=== PATIENT | male | born 1960 | race Caucasian/White ===

== ENCOUNTER 2022-07-28 12:40 | Inpatient (IN) | payer MEDICAID, SELFPAY ==
[2022-07-28] VITALS (66 sets, daily range): BP systolic 102–172; BP diastolic 70–123; PULSE 76–103; RESP 12–35; TEMP 35.9–36.7; O2SAT 95–100; BMI 29.4; BMI 29.7
--- NOTE | 2022-07-28 13:02 | XR_ITS ---
WS: [id number] EXAMINATION: XR chest 1V portable [id number] REASON FOR EXAM: palpitations COMPARISON: 09/02/2016 ORDER DATE: 07/28/2022 1:09 PM TECHNIQUE: A single, portable frontal chest x-ray was obtained. X-RAY FINDINGS: The lungs are clear. Pleural spaces are clear. No pleural effusions or pneumothorax. Cardiomediastinal silhouette demonstrates previous sternotomy and stent graft repair of thoracic aort ic arch to the upper sternal wires are fractured and minimally .. No evidence for pulmonary edema. Soft tissue and osseous structures are unremarkable. No tubes or lines are present. XR/XR chest 1V portable [id number] IMPRESSION: Unremarkable frontal portable chest x-ray except for postsurgical changes as n oted.
--- NOTE | 2022-07-28 13:02 | ECG_ITS ---
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 Measurements Intervals Wheeler Rate: 88 P: 147 CA: 139 QRS: 134 QRSD: 126 T: 241 QT: 373 QTc: 453 Interpretive Statements ECTOPIC ATRIAL RHYTHM POSSIBLE LEFT ATRIAL ENLARGEMENT [-0.1mV P-WAVE IN V1/V2] POSSIBLE RIGHT VENTRICULAR HYPERTROPHY [SOME/ALL OF: PROMINENT R IN V1, LATE TRANSITION, RAD, EBENEZER, SSS] PROBABLE INFERIOR MYOCARDIAL INFARCTION , OF INDETERMINATE AGE [35 ms Q WAVE IN II/aVF] MODERATE T-WAVE ABNORMALITY, CONSIDER LATERAL ISCHEMIA [-0.1+ mV T-WAVE IN I/aVL/V5/V6] Compared to ECG 09/04/2016 06:12:47 Ectopic atrial rhythm now present T-wave abnormality still present Possible ischemia still present Electronically Signed On 07-28-2022 16:20:44 CDT by Kelton Rinaldi M.D. [id number]
--- NOTE | 2022-07-28 13:04 | ED_ITS ---
HPI - Arrhythmia/Palpitations General: Chief Complaint: Arrhythmia/Palpitations Stated Complaint: SVT - CONVERTED NOW Time Seen by Provider: 07/28/22 12:48 Source: patient Mode of arrival: EMS Limitations: no limitations History of Present Illness: This patient was transported to our emergency department by EMS. Patient has a known history of coronary artery disease as well as having had a aortic valve replaced both these procedures done in 2017 at this facility. States he has been doing fairly well with decreased work capacity since these procedures but today he had not an episode which persisted most of the morning that he is never had before. He states that any kind of physical activity left him short of breath and feeling like his heart was racing. He states he had 1 episode of sweatiness that lasted approximately 5 minutes. He states that his symptoms seem to be controlled when he was inactive such as sitting but if he got up and walked around on level ground or other activities of daily living his symptoms would return. He eventually made his way to the clinic who notified EMS. EMS apparently found him to be in a wide-complex tachycardia and gave him both 6 followed by 12 mg of Adenocard with resolution of his rhythm and symptoms. Patient states he has been faithful to his medications as prescribed. He does not regularly see cardiology since his procedure approximately 6 years ago. He does still smoke tobacco. He denies any other associated symptoms today. MD complaint: heart racing Duration: intermittent Arrhythmia history: on anti-coagulants Associated symptoms: Deny anxiety, nausea or vomiting Treatments prior to arrival: adenosine Review of Systems Const: Denies: fever(s) or chills Eyes: Denies: change in vision ENMT: Denies: throat pain or odynophagia Card: Reports: palpitations, lightheadedness and dyspnea on exertion; Denies: chest pain Resp: Denies: productive cough or non-productive cough GI: Denies: abdominal pain, nausea or vomiting : Denies: flank pain, difficulty urinating or dysuria Musc: Denies: neck pain, back pain, extremity pain or extremity swelling Skin/Breast: Denies: rash Neuro: Denies: headache(s), numbness in extremities or weakness in extremities Psych: Denies: anxiety or depression PFS ED PFSH: Social History Smoking and tobacco status: current every day smoker Alcohol intake: current Alcohol intake frequency: holidays/special occasions only Physical Exam Narrative: EXAM NARRATIVE: The patient is alert appears to be in no acute distress answers questions in a goal-directed fashion. Const: COMMON NORMALS: no acute distress, average body habitus, patient oriented x3, healthy appearing and alert GENERAL APPEARANCE: cooperative and comfortable HENMT: COMMON NORMALS: Normal nasal mucous membranes and turbinates present, moist oral mucous membranes and oropharynx normal NOSE: Normal nasal mucous membranes and turbinates present Eye: COMMON NORMALS: Equal, round and reactive pupils present, EOMs intact bilaterally and conjunctivae normal CONJUNCTIVA: Yes conjunctivae normal P UPIL: Yes Equal, round and reactive pupils present Neck/C-Spine: COMMON NORMALS: full ROM, no lymphadenopathy, no JVD, Thyroid normal and No carotid bruits THYROID: Thyroid normal Chest: COMMONS NORMALS: normal inspection of the chest and normal palpation of entire chest wall Resp: COMMON NORMALS: normal respiratory effort, No retractions, No use of accessory muscles and clear to auscultation bilaterally EFFORT & INSPECTION: Yes able to speak in complete sentences AUSCULTATION: clear to auscultation bilaterally Cardio: COMMON NORMALS: no JVD, regular rate, regular rhythm, No murmurs p resent (Cardio) and Peripheral pulses 2+ throughout RATE: regular rate RHYTHM: regular rhythm PERIPHERAL PULSES: Peripheral pulses 2+ throughout GI: COMMON NORMALS: Normal to inspection, nondistended, normoactive bowel sounds present, Soft to palpation and non-tender PALPATION: Yes Soft to palpation : COMMON NORMALS: Yes no CVA tenderness BLADDER/KIDNEY EXAM: Yes no CVA tenderness Back/Pelvis: COMMON NORMALS: no CVA tenderness, thoracic and lumbar spine normal to inspection, no thoracic nor lumbar tenderness and straight leg raise negative bilaterally Extremity: COMMON NORMALS: normal to inspection, full ROM, capillary refill normal, no clubbing, cyanosis or edema, no calf tenderness and no pedal edema Neuro: COMMON NORMALS: patient oriented x3, moves all extremities, no focal motor deficits and no sensory deficits noted SENSORIUM/ORIENTATION: Yes alert Psych: COMMON NORMALS: mental status grossly normal Skin: COMMON NORMALS: no rashes or lesions noted and no jaundice GENERAL SKIN EXAM: no rashes or lesions noted Course Reevaluation(s): Reevaluation #1: Has remained stable in normal sinus rhythm since arrival. His initial troponin was noted to be elevated in the 163 level with an associated NT proBNP elevation. I discussed these findings briefly and also related that I was can be consulting cardiology. Patient did express some lack of enthusiasm for being admitted. Time: 16:00 Consultations: Consultation #1: Discussed with Dr. Gatica consulting director hedis. Time: 16:25 Consultation #2: Discussed with Dr. Shetty who agrees to admission. Time: 16:38 Vital Signs: Vital signs: Vital Signs Temperature 98.1 F 07/28/22 12:45 Pulse Rate 84 07/28/22 15:40 Respiratory Rate 20 H 07/28/22 15:40 Blood Pressure 139/101 07/28/22 15:40 Pulse Oximetry 97 07/28/22 15:40 Oxygen Delivery Me thod Room Air 07/28/22 14:40 MDM - Arrhythmia/Palpitations Medical Decision Making This patient was transported via EMS because of what sounds like rapid heart rate. Evaluation by EMS and review of tracings provided by EMS appears to be a wide-complex tachycardia. He did receive Identicard prior to arrival which converted him back to sinus rhythm. Patient did not have chest pain throughout his symptoms that lasted intermittently throughout the morning and does not have chest pain now. His resting EKG initially showed nonspecific changes but no clear evidence of J-point elevation and ischemia. We will continue to monitor, work-up for any evidence of ongoing ischemia and consult cardiology. His initial troponin was elevated and subsequent troponin doubled.Continue your to be pain-free however because of his presenting rhythm in the field as well as his ongoing troponin elevations it is in the patient's best interest to be placed in the hospital for continued monitoring and determination whether angiogram is indicated. This was reviewed with the patient who was somewhat reluctant but agreed to the process. Medical Records I reviewed the patient's medical records. No past medical records available within this system since the patient's procedures done at this facility in 2017. Lab Data I reviewed the patient's lab results. 07/28/22 12:49 07/28/22 12:49 Radiology Impressions Chest X-Ray 07/28/22 13:02 IMPRESSION: Unremarkable frontal portable chest x-ray except for postsurgical changes as noted. Laboratory Results WBC 11.6 10^3/uL (4.0-10.0) H 07/28/22 12:49 RBC 4.29 10^6/uL (4.1-5.3) 07/28/22 12:49 Hgb 14.1 g/dL (11.7-16.6) 07/28/22 12:49 Hct 40.9 % (42.0-52.0) L 07/28/22 12:49 MCV 95.3 fl (80-94) H 07/28/22 12:49 MCH 32.9 pg (28.0-34.0) 07/28/22 12:49 MCHC 34.5 g/dL (30.0-36.0) 07/28/22 12:49 RDW 13.2 % (12.1-15.1) 07/28/22 12:49 Plt Count 186 10^3/cmm (130-400) 07/28/22 12:49 MPV 10.7 fL (7.4-10.4) H 07/28/22 12:49 Neut % (Auto) 80.9 % 07/28/22 12:49 Lymph % (Auto) 9.2 % 07/28/22 12:49 [place] % (Auto) 8.1 % 07/28/22 12:49 Eos % (Auto) 0.6 % 07/28/22 12:49 Baso % (Auto) 0.6 % 07/28/22 12:49 Neut # (Auto) 9.35 10^3/uL (1.8-7.7) H 07/28/22 12:49 Lymph # (Auto) 1.1 10^3/uL (0.8-4.8) 07/28/22 12:49 [place] # (Auto) 0.9 10^3/uL (0.2-0.9) 07/28/22 12:49 Eos # (Auto) 0.1 10^3/uL (0.0-0.8) 07/28/22 12:49 Baso # (Auto) 0.1 10^3/uL (0.0-0.1) 07/28/22 12:49 Nucleated RBC % (auto) 0 % 07/28/22 12:49 Nucleated RBCs # 0.0 /100WBC 07/28/22 12:49 Sodium 141 mmol/L (136-145) 07/28/22 12:49 Potassium 4.2 mmol/L (3.5-5.1) 07/28/22 12:49 Chloride 110 mmol/L (98-107) H 07/28/22 12:49 Carbon Dioxide 21 mmol/L (22-29) L 07/28/22 12:49 Anion Gap 14.2 (5-19) 07/28/22 12:49 BUN 15 mg/dL (8-23) 07/28/22 12:49 Creatinine 1.2 mg/dL (0.7-1.2) 07/28/22 12:49 GFR Calculation 61.8 mL/min (90-130) L 07/28/22 12:49 Glucose 91 mg/dL (65-115) 07/28/22 12:49 Calculated Osmolality 292 mOsm/kg (285-295) 07/28/22 12:49 Calcium 9.0 mg/dL (8.5-10.5) 07/28/22 12:49 Total Bilirubin 0.4 mg/dL (0.15-1.2) 07/28/22 12:49 AST 37 U/L (0-40) 07/28/22 12:49 ALT 28 U/L (0-41) 07/28/22 12:49 Alkaline Phosphatase 76 U/L (40-130) 07/28/22 12:49 Troponin T Baseline 163 ng/L (0-15) H* 07/28/22 12:49 Troponin T 120 Minute 312.6 ng/L (0-15) H 07/28/22 14:55 Delta Troponin T 149.6 ABS# (0-10) H* 07/28/22 14:55 NT-Pro-B Natriuret Pep 2425 pg/mL (0-125) H 07/28/22 12:49 Total Protein 6.4 g/dL (6.6-8.7) L 07/28/22 12:49 Albumin 4.0 g/dL (3.5-5.2) 07/28/22 12:49 Globulin 2.4 g/dL (1.3-4.6) 07/28/22 12:49 TSH 3.05 uIU/mL (0.27-4.20) 07/28/22 12:49 EKG Data EKG 1: I personally reviewed and interpreted this EKG as follows: Interpretation: Contemporaneous review of resting EKG reveals ventricular rate of 88 bpm. Appears to be in sinus rhythm. TN interval QRS duration corrected QT interval are all normal. Somewhat rightward axis. Nonspecific ST-T wave changes noted across the precordium. He does have ST wave changes with T wave inversion 3 and aVF. Other EKG comments: Chest X-Ray 07/28/22 13:02 IMPRESSION: Unremarkable frontal portable chest x-ray except for postsurgical changes as noted. Discharge Plan Discharge Patient Disposition: Placed in Observation Clinical Impression: Wide-complex tachycardia, Non-ST elevation NC (NSTEMI) Condition: Stable Prescriptions: No Action clopidogrel 75 mg tablet 75 mg PO DAILY lisinopril 5 mg tablet 5 mg PO DAILY rosuvastatin 40 mg tablet 40 mg PO DAILY Referrals: Seth Gatica MD [Primary Care Provider] - Coding Level of Care Code ED Epic Radiant Analyst for Chg James
[2022-07-28 13:14] LABS: Basophils # 0.1 10^3/uL (0.0-0.1); Basophils % 0.6 %; Eosinophils # 0.1 10^3/uL (0.0-0.8); Eosinophils % 0.6 %; Hematocrit 40.9 % (42.0-52.0); Hemoglobin 14.1 g/dL (11.7-16.6); Lymphocytes # 1.1 10^3/uL (0.8-4.8); Lymphocytes % 9.2 %; Mean Corpuscular HGB Conc 34.5 g/dL (30.0-36.0); Mean Corpuscular Hemoglobin 32.9 pg (28.0-34.0); Mean Corpuscular Volume 95.3 fl (80-94); Mean Platelet Volume 10.7 fL (7.4-10.4); Monocytes # 0.9 10^3/uL (0.2-0.9); Monocytes % 8.1 %; Neutrophils # 9.35 10^3/uL (1.8-7.7); Neutrophils % 80.9 %; Nucleated Red Blood Cells % 0 %; Platelet Count 186 10^3/cmm (130-400); Red Blood Count 4.29 10^6/uL (4.1-5.3); Red Cell Distribution Width 13.2 % (12.1-15.1); White Blood Count 11.6 10^3/uL (4.0-10.0)
[2022-07-28 14:06] LABS: Alanine Aminotransferase 28 U/L (0-41); Alkaline Phosphatase 76 U/L (40-130); Anion Gap 14.2 (5-19); Aspartate Amino Transferase 37 U/L (0-40); Blood Urea Nitrogen 15 mg/dL (8-23); Carbon Dioxide 21 mmol/L (22-29); Chloride 110 mmol/L (98-107); Globulin 2.4 g/dL (1.3-4.6); Glomerular Filtration Rate 61.8 mL/min (90-130); Glucose 91 mg/dL (65-115); NT Pro B Type Natriuretic Pept 2425 pg/mL (0-125); Osmolality Calculated 292 mOsm/kg (285-295); Potassium 4.2 mmol/L (3.5-5.1); Sodium 141 mmol/L (136-145); Thyroid Stimulating Hormone 3.05 uIU/mL (0.27-4.20); Total Bilirubin 0.4 mg/dL (0.15-1.2); Total Protein 6.4 g/dL (6.6-8.7)
[2022-07-28 14:17] LABS: Troponin(5th) Baseline 163 ng/L (0-15)
--- NOTE | 2022-07-28 16:09 | ECG_ITS ---
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 Measurements Intervals [place] Rate: 78 P: 69 SD: 143 QRS: 57 QRSD: 122 T: 38 QT: 399 QTc: 456 Interpretive Statements SINUS RHYTHM PROBABLE INFERIOR MYOCARDIAL INFARCTION , OF INDETERMINATE AGE [35 ms Q WAVE IN II/aVF] Compared to ECG 07/28/2022 12:45:04 Ectopic atrial rhythm no longer present Atrial abnormality no longer present T-wave abnormality no longer present Possible ischemia no longer present Myocardial infarct finding still present Electronically Signed On 07-28-2022 16:22:34 CDT by Kelton Rinaldi M.D. [id number]
[2022-07-28 16:21] LABS: Troponin 5 2HR 312.6 ng/L (0-15); Troponin 5 2HR Delta 149.6 ABS# (0-10)
--- NOTE | 2022-07-28 17:05 | ED_ITS ---
HPI - Arrhythmia/Palpitations General: Chief Complaint: Arrhythmia/Palpitations Stated Complaint: SVT - CONVERTED NOW Time Seen by Provider: 07/28/22 12:48 Source: patient Mode of arrival: EMS Limitations: no limitations History of Present Illness: MD complaint: heart racing Treatments prior to arrival: adenosine [facility] ED PFSH: Medical History Arteriosclerotic heart disease (ASHD) Essential hypertension Surgical History History of artificial heart valve Social History Smoking and tobacco status: current every day smoker Alcohol intake: current Alcohol intake frequency: holidays/special occasions only Course Vital Signs: Vital signs: Vital Signs Temperature 98.6 F 07/29/22 20:00 Pulse Rate 67 07/29/22 20:00 Respiratory Rate 22 H 07/29/22 20:00 Blood Pressure 137/76 07/29/22 20:00 Pulse Oximetry 95 07/29/22 20:00 Oxygen Delivery Me thod Room Air 07/29/22 20:00 MDM - Arrhythmia/Palpitations Lab Data 07/29/22 05:03 07/29/22 05:03 Radiology Impressions Chest X-Ray 07/28/22 13:02 IMPRESSION: Unremarkable frontal portable chest x-ray except for postsurgical changes as noted. Laboratory Results WBC 11.6 10^3/uL (4.0-10.0) H 07/28/22 12:49 RBC 4.29 10^6/uL (4.1-5.3) 07/28/22 12:49 Hgb 14.1 g/dL (11.7-16.6) 07/28/22 12:49 Hct 40.9 % (42.0-52.0) L 07/28/22 12:49 MCV 95.3 fl (80-94) H 07/28/22 12:49 MCH 32.9 pg (28.0-34.0) 07/28/22 12:49 MCHC 34.5 g/dL (30.0-36.0) 07/28/22 12:49 RDW 13.2 % (12.1-15.1) 07/28/22 12:49 Plt Count 186 10^3/cmm (130-400) 07/28/22 12:49 MPV 10.7 fL (7.4-10.4) H 07/28/22 12:49 Neut % (Auto) 80.9 % 07/28/22 12:49 Lymph % (Auto) 9.2 % 07/28/22 12:49 [place] % (Auto) 8.1 % 07/28/22 12:49 Eos % (Auto) 0.6 % 07/28/22 12:49 Baso % (Auto) 0.6 % 07/28/22 12:49 Neut # (Auto) 9.35 10^3/uL (1.8-7.7) H 07/28/22 12:49 Lymph # (Auto) 1.1 10^3/uL (0.8-4.8) 07/28/22 12:49 [place] # (Auto) 0.9 10^3/uL (0.2-0.9) 07/28/22 12:49 Eos # (Auto) 0.1 10^3/uL (0.0-0.8) 07/28/22 12:49 Baso # (Auto) 0.1 10^3/uL (0.0-0.1) 07/28/22 12:49 Nucleated RBC % (auto) 0 % 07/28/22 12:49 Nucleated RBCs # 0.0 /100WBC 07/28/22 12:49 Sodium 141 mmol/L (136-145) 07/28/22 12:49 Potassium 4.2 mmol/L (3.5-5.1) 07/28/22 12:49 Chloride 110 mmol/L (98-107) H 07/28/22 12:49 Carbon Dioxide 21 mmol/L (22-29) L 07/28/22 12:49 Anion Gap 14.2 (5-19) 07/28/22 12:49 BUN 15 mg/dL (8-23) 07/28/22 12:49 Creatinine 1.2 mg/dL (0.7-1.2) 07/28/22 12:49 GFR Calculation 61.8 mL/min (90-130) L 07/28/22 12:49 Glucose 91 mg/dL (65-115) 07/28/22 12:49 Calculated Osmolality 292 mOsm/kg (285-295) 07/28/22 12:49 Calcium 9.0 mg/dL (8.5-10.5) 07/28/22 12:49 Total Bilirubin 0.4 mg/dL (0.15-1.2) 07/28/22 12:49 AST 37 U/L (0-40) 07/28/22 12:49 ALT 28 U/L (0-41) 07/28/22 12:49 Alkaline Phosphatase 76 U/L (40-130) 07/28/22 12:49 Troponin T Baseline 163 ng/L (0-15) H* 07/28/22 12:49 Troponin T 120 Minute 312.6 ng/L (0-15) H 07/28/22 14:55 Delta Troponin T 149.6 ABS# (0-10) H* 07/28/22 14:55 NT-Pro-B Natriuret Pep 2425 pg/mL (0-125) H 07/28/22 12:49 Total Protein 6.4 g/dL (6.6-8.7) L 07/28/22 12:49 Albumin 4.0 g/dL (3.5-5.2) 07/28/22 12:49 Globulin 2.4 g/dL (1.3-4.6) 07/28/22 12:49 TSH 3.05 uIU/mL (0.27-4.20) 07/28/22 12:49 Discharge Plan Discharge Patient Disposition: Admitted As Inpatient Admit Provider: Maxx Shetty Clinical Impression: Wide-complex tachycardia, Non-ST elevation MD (NSTEMI) Condition: Stable Coding Level of Care Code ED Laboratory Development Technician for Josey Ramirez
[2022-07-28] MEDS: enoxaparin 100 mg/mL Syringe 90 MG SUBCUT (17:18)
--- NOTE | 2022-07-28 17:35 | P.HP_ITS ---
Providers/Chief Complaint Admitting Physician: Maxx Shetty MD Primary Care Provider: Seth Gatica MD Chief Complaint: SVT - CONVERTED NOW History of Present Illness Antony Juares is a 62 year old male with past medical history of hypertension , coronary artery disease s/p CABG, longtime active heavy chronic smoker, came in today with chief complaint of acute onset of shortness of breath dizziness palpitation, burning chest sensation, he does not himself to the local clinic, EMT found him wide-complex tachycardia, received 2 doses of adenosine 6 and 12, converted to sinus rhythm, was brought to the ER.EKG : Sinus rhythm,X-ray chest: No acute findings. Pertinent labs: WBC 11.6, H&H 14/40 PLT : 186 , serum sodium 141 serum potassium 4.2, BUN 15, serum creatinine 1.2,TSH: 3.05 Troponin trend: 163-312 , 6-hour troponin pending, proBNP 2425 Patient received 1 dose of therapeutic Lovenox in the ER, cardiology was consulted. Review of Systems General: Reports: 10 or more systems reviewed and unremarkable except in HPI and below Const: Denies: fever(s), chills, body aches, change in appetite or diaphoresis Card: Reports: palpitations and dyspnea on exertion; Denies: edema, swelling of feet/ankles, orthopnea or leg pain with exertion Resp: Denies: dyspnea, productive cough, wheezing or pain on inspiration GI: Denies: abdominal pain, nausea, vomiting, diarrhea or constipation : Denies: flank pain or difficulty urinating Musc: Denies: back pain, extremity pain or extremity swelling Neuro: Denies: headache(s), difficulty walking or confusion Medications/Allergies Home Medications Medication Instructions Recorded Confirmed Last Taken Type clopidogrel 75 mg tablet 75 mg PO DAILY 02/09/22 07/28/22 07/28/22 History lisinopril 5 mg tablet 5 mg PO DAILY 07/28/22 07/28/22 07/28/22 History rosuvastatin 40 mg tablet 40 mg PO DAILY 07/28/22 07/28/22 07/27/22 History Allergies Allergy/AdvReac Type Severity Reaction Status Date / Time No Known Allergies Allergy Verified 07/28/22 12:53 PFSH Acute PFSH: Social History Smoking and tobacco status: current every day smoker Alcohol intake: current Alcohol intake frequency: holidays/special occasions only Vitals/I&O/Wt Last Vital Signs Temp 98.1 F 07/28/22 12:45 Pulse 84 07/28/22 15:40 Resp 20 H 07/28/22 15:40 BP 139/101 07/28/22 15:40 Pulse Ox 97 07/28/22 15:40 O2 Del Method Room Air 07/28/22 14:40 Weight last 48 hrs Weight 92.986 kg Physical Exam Const: COMMON NORMALS: patient oriented x3 HENMT: COMMON NORMALS: normocephalic and atraumatic HEAD & SCALP: normocephalic and atraumatic Resp: COMMON NORMALS: clear to auscultation bilaterally AUSCULTATION: clear to auscultation bilaterally Cardio: COMMON NORMALS: regular rate, regular rhythm, S1 normal heart sound present, S2 normal heart sound present, No gallops present (Cardio), No murmurs present (Cardio), No rub (Cardio) and Peripheral pulses 2+ throughout RATE: regular rate RHYTHM: regular rhythm HEART SOUNDS: S1 normal heart sound present and S2 normal heart sound present PERIPHERAL PULSES: Peripheral pulses 2+ throughout GI: COMMON NORMALS: Normal to inspection, nondistended, normoactive bowel sounds present, Soft to palpation, non-tender, No hepatosplenomegaly present and no masses AUSCULTATION: Yes normoactive bowel sounds PALPATION: Yes Soft to palpation and Yes No hepatosplenomegaly present RECTAL EXAM: Yes deferred Extremity: COMMON NORMALS: no clubbing, cyanosis or edema and no pedal edema Neuro: COMMON NORMALS: patient oriented x3 Data 07/28/22 12:49 07/28/22 12:49 A&P Assessment and plan (1) Wide-complex tachycardia: (2) Non-ST elevation GA (NSTEMI): (3) CAD (coronary artery disease): (4) Hypertension: (5) Hx of CABG: Plan 62 year old male with past medical history of hypertension , coronary artery disease s/p CABG, longtime active heavy chronic smoker, came in today with chief complaint of acute onset of shortness of breath dizziness palpitation, burning chest sensation, he does not himself to the local clinic, EMT found him wide- complex tachycardia, received 2 doses of adenosine 6 and 12, converted to sinus rhythm, was brought to the ER. Assessment: NSTEMI : Could be secondary to tachycardia driven, for now we will treat as NSTEMI type I, given his significant, past medical history of coronary artery disease, and active smoking, with hypertension EKG : Sinus rhythm, X-ray chest: No acute findings. Troponin trend: 163-312 , 6-hour troponin pending, proBNP 2425 Follow-up 2D echo Monitor serial EKG Continue telemetry monitoring Currently on ACS protocol (on aspirin Plavix, statin, therapeutic anticoagulation with Lovenox) Cardiology on board N.p.o. after midnight History of coronary artery disease s/p CABG: Continue aspirin Plavix statin History of hypertension: Continue lisinopril CODE STATUS; full code DVT prophylaxis not needed on therapeutic anticoagulation with Lovenox. Attestations Medical Necessity Statement*: Patient is in hospital for management of NSTEMI.Anticipated length of stay greater then 2 midnights. Coding Level of Care Code 45086 Diagnoses Wide-complex tachycardia R00.0 Non-ST elevation GA (NSTEMI) I21.4 CAD (coronary artery disease) I25.10 Hypertension I10 Hx of CABG Z95.1
--- NOTE | 2022-07-28 17:36 | USCV_ITS ---
Antony Juares Age: 62 Gender: M : 1960 Exam Date: 07/28/2022 18:07 Ordering Phys: Maxx Shetty MD Technologist: VAISHNAVI [place] [facility] [place]: SOB, elevated troponin, ST changes. hx CAD s/p CABG and bovine AVR 2016. long-term smoker, continues smoking BP: 139 / 101 HR: 71 Rhythm: Sinus Technical Quality: Adequate MEASUREMENTS (Male / Female) Normal Values 2D ECHO LV Diastolic Diameter PLAX 6.2 cm 4.2 - 5.9 / 3.9 - 5.3 cm LV Systolic Diameter PLAX 5.0 cm IVS Diastolic Thickness 1.2 cm 0.6 - 1.0 / 0.6 - 0.9 cm IVS Systolic Thickness 2.0 cm LVPW Diastolic Thickness 0.9 cm 0.6 - 1.0 / 0.6 - 0.9 cm LVPW Systolic Thickness 1.3 cm LVOT Diameter 1.7 cm LV Ejection Fraction 2D Teich 38.4 % LV Ejection Fraction MOD 2C 51.3 % LV Ejection Fraction 2C AL 53.3 % LA Diameter 5.0 cm LA Width 4.0 cm LA Height 5.9 cm RA Width 4.8 cm RA Height 4.9 cm Aorta at Sinotubular Diameter 4.1 cm IVC Diameter 1.6 cm M-MODE Aortic Annulus Diameter 3.6 cm LA Ao Ratio MM 1.3 MV E Point Septal Separation 1.7 cm DOPPLER AV Peak Velocity 133.3 cm/s LVOT Peak Velocity 50.0 cm/s AV Area Cont Eq vti 0.8 cm squared AV Area Cont Eq pk 0.9 cm squared MV Peak Velocity 92.0 cm/s MV Area PHT 4.1 cm squared Mitral E to A Ratio 0.9 MV E' Velocity 41.5 cm/s Mitral E to MV E' Ratio 12.6 Mitral E to LV E' Lateral Ratio 11.1 Mitral E to LV E' Septal Ratio 14.8 TV Peak E Velocity 41.0 cm/s PV Peak Velocity 74.0 cm/s RV Acceleration Time 0.1 s RV Ejection Time 0.3 s RV AcT/ET 0.4 FINDINGS Left Ventricle Diffuse hypokinesia of the left ventricular ejection fraction of 45%( visual). Mildly dilated LV cavity.Grade I/IV diastolic dysfunction (abnormal relaxation filling pattern), normal to mildly elevated filling pressures. Right Ventricle Normal right ventricular size and systolic function. Right Atrium Mildly increased right atrial size. Left Atrium Mildly increased left atrial size. Mitral Valve Thickened mitral valve. Mild-moderate mitral valve regurgitation. Aortic Valve The bioprosthetic valve in the aortic position appears to be well-seated. The peak velocity across the aortic valve is 1.65 m/s. Tricuspid Valve No gross abnormalities noted Pulmonic Valve Pulmonic valve not well visualized. Pericardium Normal pericardium without effusion. Aorta Mildly dilated ascending aorta. IVC Normal inferior vena cava. CONCLUSIONS Diffuse hypokinesia of the left ventricular ejection fraction of 45%. Mildly dilated LV cavity. Grade I/IV diastolic dysfunction (abnormal relaxation filling pattern), normal to mildly elevated filling pressures. Mild biatrial enlargement. Thickened mitral valve. Mild-moderate mitral valve regurgitation. The bioprosthetic valve in the aortic position appears to be well-seated. The peak velocity across the aortic valve is 1.65 m/s. There is no pericardial effusion. Technically difficult study because of the poor ultrasonic window. Mildly dilated ascending aorta , measured 4.1cm in diameter at the sinotubular junction. Comparison with the previous study is difficult because of the difference in the technical quality. Dr Seth Gatica MD [facility] (Electronically Signed) Final Date: 28 July 2022 20:34 S
--- NOTE | 2022-07-28 18:14 | PC.NURSE ---
received in to room 107 from er via w/c at 1750.report received.pt is alert and oriented x 4.denies pain at present.pt insists upon taking a shower before i get hooked up to the monitor .dr san in to see pt.he states it is okay for pt to take a brief shower.noted elevated bp 172/110.pt stated i WILL be out of here tomorrow at 10:00 . 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
--- NOTE | 2022-07-28 19:43 | ECG_ITS ---
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 Measurements Intervals [place] Rate: 87 P: 65 IA: 112 QRS: 64 QRSD: 125 T: 42 QT: 389 QTc: 468 Interpretive Statements SINUS RHYTHM WITH SHORT IA INTERVAL POSSIBLE LEFT ATRIAL ENLARGEMENT [-0.1mV P-WAVE IN V1/V2] INFERIOR MYOCARDIAL INFARCTION , OF INDETERMINATE AGE [40+ ms Q WAVE AND/OR ST/T ABNORMALITY IN II/aVF] Compared to ECG 07/28/2022 16:09:31 Short IA interval now present Myocardial infarct finding still present Electronically Signed On 07-28-2022 21:07:58 CDT by Kelton Rinaldi M.D. [id number]
[2022-07-28 20:25] LABS: Troponin 5 6HR 469.9 ng/L (0-15); Troponin 5 6HR Delta 306.9 ng/L (0-12)
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
--- NOTE | 2022-07-28 21:30 | PC.NURSE ---
Dr. Gatica rounded on patient. spoke with nurse regarding plan for possible cardiac catheterization tomorrow. Nurse clarified with to give 5:30 am Lovenox as patient most likely will not go for cath till afternoon.
[2022-07-28] MEDS: metoprolol tartrate 50 mg Tablet PO (23:18)
[2022-07-28] MEDS: aspirin 325 mg Tablet PO (23:18)
[2022-07-29] VITALS (58 sets, daily range): BP systolic 126–157; BP diastolic 76–94; PULSE 55–81; RESP 5–25; TEMP 36.8–37; O2SAT 93–98
[2022-07-29] MEDS: enoxaparin 100 mg/mL Syringe 90 MG SUBCUT (04:36)
[2022-07-29 05:47] LABS: Basophils # 0.1 10^3/uL (0.0-0.1); Basophils % 1.1 %; Eosinophils # 0.2 10^3/uL (0.0-0.8); Hematocrit 39.5 % (42.0-52.0); Hemoglobin 13.4 g/dL (11.7-16.6); Lymphocytes # 2.1 10^3/uL (0.8-4.8); Lymphocytes % 28.1 %; Mean Corpuscular HGB Conc 33.9 g/dL (30.0-36.0); Mean Corpuscular Hemoglobin 32.6 pg (28.0-34.0); Mean Corpuscular Volume 96.1 fl (80-94); Mean Platelet Volume 11.2 fL (7.4-10.4); Monocytes # 0.7 10^3/uL (0.2-0.9); Neutrophils # 4.19 10^3/uL (1.8-7.7); Neutrophils % 57.5 %; Nucleated Red Blood Cells % 0 %; Platelet Count 178 10^3/cmm (130-400); Red Blood Count 4.11 10^6/uL (4.1-5.3); Red Cell Distribution Width 13.2 % (12.1-15.1); White Blood Count 7.3 10^3/uL (4.0-10.0)
[2022-07-29 06:06] LABS: Alanine Aminotransferase 23 U/L (0-41); Albumin Level 3.7 g/dL (3.5-5.2); Alkaline Phosphatase 73 U/L (40-130); Anion Gap 16.1 (5-19); Aspartate Amino Transferase 38 U/L (0-40); Blood Urea Nitrogen 19 mg/dL (8-23); Calcium 8.8 mg/dL (8.5-10.5); Carbon Dioxide 20 mmol/L (22-29); Chloride 108 mmol/L (98-107); Globulin 2.1 g/dL (1.3-4.6); Glomerular Filtration Rate 86.1 mL/min (90-130); Glucose 92 mg/dL (65-115); Magnesium 1.7 mg/dL (1.7-2.3); Osmolality Calculated 292 mOsm/kg (285-295); Potassium 4.1 mmol/L (3.5-5.1); Sodium 140 mmol/L (136-145); Total Bilirubin 0.2 mg/dL (0.15-1.2); Total Protein 5.8 g/dL (6.6-8.7)
--- NOTE | 2022-07-29 07:55 | PM.PN ---
Subjective Subjective: Denies any chest pain. Vital signs are stable. No recurrence of wide-complex tachycardia. Tolerating medication so far well. Medications: Medication Review Details: Current Medications Acetaminophen (Acetaminophen 325 Mg Tablet) 650 mg PO Q6H PRN PRN Reason: Mild/Mod Pain Or Temp >/= 101 Aspirin (Aspirin 81 Mg Ec Tablet) 81 mg PO DAILY [facility] Atorvastatin Calcium (Atorvastatin 40 Mg Tablet) 80 mg PO DAILY [facility] Bisacodyl (Bisacodyl 5 Mg Tablet) 10 mg PO DAILY PRN; Protocol PRN Reason: Constipation (see protocol) Clopidogrel Bisulfate (Clopidogrel 75 Mg Tablet) 75 mg PO DAILY [facility] Diphenhydramine HCl (Diphenhydramine 50 Mg Capsule) 50 mg PO ONCE ONE Stop: 07/29/22 09:01 Enoxaparin Sodium (Enoxaparin 100 Mg/Ml Syringe) 90 mg 1 mg/kg (90 mg) SUBCUT Q12H [facility] Last Admin: 07/29/22 04:36 Dose: 90 mg Sodium Chloride (Sodium Chloride 0.9%) 1,000 mls @ 50 mls/hr IV .Q20H ONE Stop: 07/30/22 04:59 Lisinopril (Lisinopril 5 Mg Tablet) 5 mg PO DAILY [facility] Metoprolol Tartrate (Metoprolol Tartrate 50 Mg Tablet) 50 mg PO BID@0900,2100 [facility] Last Admin: 07/28/22 23:18 Dose: 50 mg Nitroglycerin (Nitroglycerin 0.4 Mg Sublingual Tablet) 0.4 mg SUBLINGUAL Q5M PRN PRN Reason: CHEST PAIN Ondansetron HCl (Ondansetron 2 Mg/Ml Sdv 2 Ml) 4 mg IVP Q8H PRN PRN Reason: vomiting, or N/V if npo Vitals/I&O/Wt Last Vital Signs Temp 98.6 F 07/29/22 07:20 Pulse 69 07/29/22 07:20 Resp 17 07/29/22 07:20 BP 134/87 07/29/22 07:20 Pulse Ox 97 07/29/22 07:20 O2 Del Method Room Air 07/29/22 07:20 07/28/22 07/29/22 07/29/22 22:59 06:59 14:59 Intake Total 360 / 360 Balance 360 / 360 Weight last 48 hrs Weight 207 lb 6 oz Weight 205 lb Physical Exam Narrative: GENERAL: The patient is alert and oriented times three. Not in any acute distress. HEENT: No significant pallor, icterus or lymphadenopathy.Oral cavity: There are no mucous membrane lesions. NECK: Trachea appears to be central. No masses noted. No JVD or thyromegaly appreciated. RESPIRATORY: Chest is symmetrical. No intercostals muscle retraction or any accessory muscle activation. There is no chest wall tenderness. Breath sounds are heard bilaterally. No rales or rhonchi heard. No evidence of any consolidation. BREASTS: Deferred. HEART: The heart sounds are normal. No S3 . S4 present. Short systolic murmur at the aortic area. No diastolic murmurs. No pericardial rub ABDOMEN: No vessel pulsations or distention. No tenderness. No organomegaly appreciated. Bowel sounds are normally heard. : Deferred. RECTAL: Deferred. LYMPHATIC: No lymphadenopathy noted in the neck. EXTREMITIES: No edema or cyanosis. No clubbing. MUSCULOSKELETAL: No acute joint deformities or swelling SKIN: There are no significant rashes or ecchymosis NEUROPSYCHIATRIC: The patient is alert and oriented x3. Appears to be in a good mood. No tremors or rigidity noted. Data 07/29/22 05:03 07/29/22 05:03 Other Labs: Laboratory Last Values WBC 7.3 10^3/uL (4.0-10.0) 07/29/22 05:03 RBC 4.11 10^6/uL (4.1-5.3) 07/29/22 05:03 Hgb 13.4 g/dL (11.7-16.6) 07/29/22 05:03 Hct 39.5 % (42.0-52.0) L 07/29/22 05:03 MCV 96.1 fl (80-94) H 07/29/22 05:03 MCH 32.6 pg (28.0-34.0) 07/29/22 05:03 MCHC 33.9 g/dL (30.0-36.0) 07/29/22 05:03 RDW 13.2 % (12.1-15.1) 07/29/22 05:03 Plt Count 178 10^3/cmm (130-400) 07/29/22 05:03 MPV 11.2 fL (7.4-10.4) H 07/29/22 05:03 Neut % (Auto) 57.5 % 07/29/22 05:03 Lymph % (Auto) 28.1 % 07/29/22 05:03 Twiggs % (Auto) 10.0 % 07/29/22 05:03 Eos % (Auto) 3.0 % 07/29/22 05:03 Baso % (Auto) 1.1 % 07/29/22 05:03 Neut # (Auto) 4.19 10^3/uL (1.8-7.7) 07/29/22 05:03 Lymph # (Auto) 2.1 10^3/uL (0.8-4.8) 07/29/22 05:03 Twiggs # (Auto) 0.7 10^3/uL (0.2-0.9) 07/29/22 05:03 Eos # (Auto) 0.2 10^3/uL (0.0-0.8) 07/29/22 05:03 Baso # (Auto) 0.1 10^3/uL (0.0-0.1) 07/29/22 05:03 Nucleated RBC % (auto) 0 % 07/29/22 05:03 Nucleated RBCs # 0.0 /100WBC 07/29/22 05:03 Sodium 140 mmol/L (136-145) 07/29/22 05:03 Potassium 4.1 mmol/L (3.5-5.1) 07/29/22 05:03 Chloride 108 mmol/L (98-107) H 07/29/22 05:03 Carbon Dioxide 20 mmol/L (22-29) L 07/29/22 05:03 Anion Gap 16.1 (5-19) 07/29/22 05:03 BUN 19 mg/dL (8-23) 07/29/22 05:03 Creatinine 0.9 mg/dL (0.7-1.2) 07/29/22 05:03 GFR Calculation 86.1 mL/min (90-130) L 07/29/22 05:03 Glucose 92 mg/dL (65-115) 07/29/22 05:03 Calculated Osmolality 292 mOsm/kg (285-295) 07/29/22 05:03 Calcium 8.8 mg/dL (8.5-10.5) 07/29/22 05:03 Magnesium 1.7 mg/dL (1.7-2.3) 07/29/22 05:03 Total Bilirubin 0.2 mg/dL (0.15-1.2) 07/29/22 05:03 AST 38 U/L (0-40) 07/29/22 05:03 ALT 23 U/L (0-41) 07/29/22 05:03 Alkaline Phosphatase 73 U/L (40-130) 07/29/22 05:03 Troponin T Baseline 163 ng/L (0-15) H* 07/28/22 12:49 Troponin T 120 Minute 312.6 ng/L (0-15) H 07/28/22 14:55 Delta Troponin T 149.6 ABS# (0-10) H* 07/28/22 14:55 Troponin T Hi Sens 6Hr 469.9 ng/L (0-15) H 07/28/22 19:40 Troponin T Hi Sens 6Hr Delta 306.9 ng/L (0-12) H* 07/28/22 19:40 NT-Pro-B Natriuret Pep 2425 pg/mL (0-125) H 07/28/22 12:49 Total Protein 5.8 g/dL (6.6-8.7) L 07/29/22 05:03 Albumin 3.7 g/dL (3.5-5.2) 07/29/22 05:03 Globulin 2.1 g/dL (1.3-4.6) 07/29/22 05:03 TSH 3.05 uIU/mL (0.27-4.20) 07/28/22 12:49 A&P Assessment and plan (1) Wide-complex tachycardia: It may be kept on the current medication. Has no recurrence of wide-complex tachycardia since hospital admission. (2) Non-ST elevation LA (NSTEMI): Cardiac catheterization today. Based on the results, further recommendations will be made (3) Essential hypertension: Currently normotensive. May continue on the current medications. (4) H/O aortic valve replacement: The valve function appears to be appropriate. (5) Arteriosclerotic heart disease (ASHD): Patient had a two-vessel bypass surgery in 2017. He had a PCI in 2018. Details are not available. He had a LUNA to the LAD and a venous graft to the RCA. He requires a repeat cardiac catheterization to reevaluate the coronary arteries as well as the grafts. Plan Other problems are all Smoking abuse History of noncompliance Continue on the current medications. Patient the angiogram findings, further recommendations will be made. Angiogram is scheduled for this evening. Attestations Medical Necessity Statement*: Patient requires continued hospital stay for close monitoring and further management Coding Level of Care Code Acute Code for Chg Fwd Diagnoses Wide-complex tachycardia R00.0 Non-ST elevation LA (NSTEMI) I21.4 Essential hypertension I10 H/O aortic valve replacement Z95.2 Arteriosclerotic heart disease (ASHD) I25.10
[2022-07-29] MEDS: metoprolol tartrate 50 mg Tablet PO (09:32)
--- NOTE | 2022-07-29 09:54 | PC.NURSE ---
Dr. Gatica to see patient. Dr informed patient that he will not be able to complete the angio until this evening. Patient will have to leave AMA if he wants to leave.
--- NOTE | 2022-07-29 10:00 | PC.NURSE ---
Patient called nurse into room to discuss scheduling his cath for today. RN will notify Dr. Gatica.
--- NOTE | 2022-07-29 10:11 | PC.NURSE ---
Called Dr. Gatica about patient wanting to get his cath done today. Dr. Gatica is aware and would like RN to poultry hatchery laborer to have patient put on schedule for 1630. Patient updated on plan.
[2022-07-29] MEDS: aspirin 81 mg EC Tablet PO (10:39)
[2022-07-29] MEDS: lisinopril 5 mg Tablet PO (10:39)
[2022-07-29] MEDS: atorvastatin 40 mg Tablet 80 MG PO (10:39)
[2022-07-29] MEDS: clopidogrel 75 mg Tablet PO (10:40)
--- NOTE | 2022-07-29 11:09 | PC.CHAP ---
Pastoral Care Encounter/Spiritual Assessment Type of Contact [x] Declined stonemason visit [] Patient/Family/Request visit [] Outpatient visit [] Follow-up visit [] Physician referral [] Code/Alert [] Routine visit [] Staff referral [] Actively dying [] Patient sleeping [] Family support [] [] Out of room [] Palliative care [] [] Receiving care in room [] Pre-surgical visit [] Trauma [] Long length of stay [] ICU visit [] Other: Relational/Emotional Strength [] Patient feels connected with others/family/visitors/staff [] Distress [] Loneliness/isolation [] Abandonment Spirituality of Patient [] Person of Malissa [] Attends Pentecostalism of their Malissa [] Believes in Prayer [] Reads Bible or Bahai materials [] There are Spiritual issues to be addressed Dermatology Nurse Interventions [] Prayer [] Active listening [] Non-anxious presence [] Spiritual/emotional support [] Crisis/trauma care [] Spiritual counseling [] Bereavement support [] Provided bereavement packet [] Provided Bible/devotional materials [] Provided toy/stuffed animal, coloring book to patient or family member [] Provided Communion [] Anointing/[place] [] Salvation [] Completed spiritual assessment [] Other: Impact on Illness or Injury [] Angry [] Fearful [] Anxious [] Often cries [] Exhaustion [] Unable to work [] Unable to attend confucianist [] Unable to walk/stand [] Unable to read [] Unable to drive [] Unable to eat/drink [] Unable to sleep [] Unable to be with family [] Patient intubated [] Other: Summary Declined stonemason visit Time spent with patient 5 mins
--- NOTE | 2022-07-29 15:44 | XACV_ITS ---
Exam Room: 2 Ht: 178 cm Wt: 94 kg BSA: 2.18 m2 Gender: Male : 1960 Any Known Allergies: No known allergies Exam Priority: Routine Procedure(s): Procedure Description: Diagnostic procedure Procedure Description: Aortogram Procedure Description: Coronary Angiography En WILLIAMSON; Diagnostic Cath Status: Elective Diagnostic Findings * The left main is a short medium caliber vessel no significant stenotic lesions. * The left under descending artery is a medium caliber vessel which appears to wrap around the LV apex minimally. Complicated blood flow was noted in the distal artery. Moderate diffuse disease was noted in the mid segment of the LAD. Around 40% tapering narrowing was noted in the proximal left anterior descending artery to first the first septal author agent. The first and second diagonal branches are found to have no significant stenotic lesions. * The left circumflex artery is a medium caliber vessel which appears to be totally occluded after giving off two atrial branches proximally. Left to left collaterals were noted filling up the obtuse margins through diagonal vessels. [id number] collaterals also had noted during the left coronary injection. * The right coronary artery is a medium caliber vessel which was found to have severe diffuse disease proximally. After giving of the first RV branch, the artery appears to be totally occluded. * The saphenous venous graft to the right coronary artery was selectively engaged. The venous graft appeared to be totally occluded after a small proximal stump. * Left internal mammary artery graft to the LAD could not be selectively engaged because of the stent graft in the arch and descending aorta. * An aortogram was performed in. * An aortogram was performed by placing the pigtail catheter in the ascending aorta. Study was done in the shallow GREEK view. The ascending aorta including the proximal end of the arch was found to be diffusely ectatic. The maximum diameter was 4.5 cm near to the proximal end of the arch.. Conclusions 1. 62-year-old white male with history of coronary disease, status post coronary bypass surgery, status post aortic valve replacement with a pericardial 25 mm valve, status post aortic stent graft placement, presenting with the chest pain and the right, tachycardia. Elevated troponin T and abnormal EKG, suggesting a non-ST elevation myocardial infarction. LV ejection fraction around 45% by echocardiogram. For further evaluation of his coronary arteries as well as the graft status, a cardiac catheterization was recommended. Patient underwent left heart catheterization with coronary angiogram, graft angiogram and aortogram today. The findings are as follows.. 2. Short left main. Moderate diffuse disease in the mid LAD with a patent LUNA to the distal LAD. Total occlusion of the circumflex artery after the atrial branch. Total occlusion of right coronary artery after the RV branch. Severe diffuse disease in the proximal RCA. Total occlusion of the venous graft to the right coronary artery proximally. Grade 2-3 left to right collaterals and [id number] collaterals filling of the PDA, PLV and obtuse marginal branches.. 3. Aortogram revealing dilated aortic root and ascending aorta with a maximum diameter of 4.5 cm near to the proximal end of the aortic arch. 4. The cardiac catheter data was reviewed with Dr. Rinaldi. 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 Since he has no ongoing chest pain, it was thought to be appropriate to continue the medical treatment for the time being. We may consider doing a Myocardial perfusion imaging sometime down the line to evaluate the ischemic burden and then consider other options. Diagnostic RX Recommendation: medical therapy and/or counseling Pressures Phase:Rest AO : 124 / 83 ( 101 ) @ 5:45:00 PM 156 / 88 ( 114 ) @ 5:56:00 PM Clinical Evaluation EBL: 5mL-10mL Procedural Details Procedure Consent Obtained. Pre-Procedure Time Out. Identified patient by full name and date of as verbalized by the patient/guarantor. Does the consent match the physician's order: Yes. Accurate & Complete Informed Consent: Yes. Inpatient/Outpatient History & Physical on Chart: Yes. If H&P is completed, is and addenduem needed: No. Visualize and Verify Site with Patient/Guarantor: N/A. Relevant Radiology Images available: Yes. The risks, benefits, and alternatives of sedation and/or procedure were discussed by physician. The patient agrees to continue. Procedure started. [facility] Clinical Fraility Score: 3: Managing Well. Motion Picture Photographer Indications: Stable Known CAD. Chest Pain Symptom Assessment: Typical Angina Symptoms. Cardiovascular Instability: No. Correct patient, site and procedure confirmed by cath team. PERRLA. Strong, equal hand opticianry teacher bilaterally. Lungs clear x 5 lobes. IV Site on Arrival: 18 gauge in the left anticubital. IV Fluids: 0.9% NaCl at KVO. 50 mL infused prior to microbiology lab analyst. Pre Procedural Pulses: bilateral dorsalis pedis was 2+. Pre Procedural Pulses: bilateral posterior tibial was 2+. Oxygen started at 2liters/min via nasal canula. bilateral groins was prepped with chloroprep then draped in the usual sterile fashion. Physician notified. Baseline sample Acquired. HR: 67 BPM. Patient's family unavailable. The patient stated that he would update his family after he arrives back to his room. Equipment: 6F - Femoral. Cardiac Cath Pack. ACIST Manifold Kit Model BT 2000. Heparinized Saline (2 units/mL), 1000 mL bag. Kit, Micropuncture. Physician arrived. Physician scrubbed in. Immediate Pre-Procedure Time Out. Correct Patient: Yes; Correct Procedure: Yes; Correct Site: Yes; Correct Patient Position: Yes; Correct Supplies: Yes; Dried Flammable Prep: Yes; Blood Products Available: N/A;. Lidocaine 1% infiltrated to the right groin. Arterial access obtained with micropuncture set. A 5 azerbaijani JL4 catheter in over the standard J wire. Catheter removed over the standard J wire. A 5 azerbaijani JL5 catheter in over the standard J wire. Catheter removed over the standard J wire. A 5 azerbaijani JL6 catheter in over the standard J wire. Multiple views taken of left coronary artery. Catheter removed over the standard J wire. A 5 azerbaijani JR4 catheter in over the standard J wire. Multiple views taken of right coronary artery. Catheter removed over the standard J wire. A 5 azerbaijani Angled Pig catheter in over the standard J wire. Aortogram performed in [place] @ 20 mL/second for a total of 40 mL. Catheter removed over the standard J wire. Dr. Gatica scrubbed out. A Suture was successful obtaining hemostatsis at the Right Femoral artery insertion site. Sheath(s) sutured into position with 2-0 silk and sterile 4x4's and Op-site applied over the site. No oozing or signs and symptoms of hematoma noted. Arterial sheath flushed and connected to tranducer and pressure bag with heparinized saline. Post Procedure: Pulses reassessed and unchanged. A 16Fr rodriguez catheter was inserted without resistance maintaining sterile technique. Bag to gravity with clear urine returning. PERRLA. Strong, equal hand opticianry teacher bilaterally. No VTE prophylaxis required. Medication's Wasted: Heparin = 2500 Units. Medication's Wasted: Other = Versed 1 mg. Medication's Wasted: Other = Fentanyl 50 mcg. Total IV fluids: 68 mL. Post-op diagnosis: Occluded RCA graft, patent LUNA to LAD, dilated aortic root. Complications: none. Estimated blood loss: 5mL-10mL. Responsiveness - Normal response to verbal stimuli; alert and oriented, PERRLA. Airway - Unaffected, no intervention required; spontaneous ventilation. Circulation: W/N/L, pulses unchanged. Nausea/Vomiting: No. Procedure completed. Patient transferred by bed to 1st floor. Vital chart was stopped. Access Site Site: Right Femoral artery Sheath Size: 5 Fr Hemostasis Method: Suture Hemostasis Success: Successful Procedure Medications Start: 4:29 PM Stop: 4:29 PM Medication: Fentanyl Amount: 50 mcg Route: I.V. Start: 4:29 PM Stop: 4:29 PM Medication: Versed Amount: 1 mg Route: I.V. Start: 4:33 PM Stop: 4:33 PM Medication: Versed Amount: 1 mg Route: I.V. Start: 4:44 PM Stop: 4:44 PM Medication: Versed Amount: 1 mg Route: I.V. Start: 4:44 PM Stop: 4:44 PM Medication: Heparin Amount: 1500 units Route: I.V. I, the attending physician, have reviewed and verified all procedure medications. Yes, all medications given per verbal order History/Risk Factors Hypertension: Yes Dyslipidemia: No Peripheral Arterial Disease (PAD): No Myocardial Infarction (PR): No Obesity: Yes Renal Disease: No Tobacco Use: Current/Recent(w/in 1 year) Prior Interventions PCI: No CABG: Yes Valve Surgery: No Report Signatures Finalized by Dr Seth Gatica MD [facility] on 07/29/2022 07:23 PM
[2022-07-29] MEDS: sodium chloride 0.9% 1,000 ML 50 ML IV (15:49)
[2022-07-29] MEDS: diphenhydrAMINE 50 mg Capsule PO (15:52)
--- NOTE | 2022-07-29 16:26 | P.HPUD_ITS ---
Surgery/Procedure H&P Update DATE OF PROCEDURE: July 29, 2022 DATE H&P PERFORMED: 07/28/22 H&P UPDATE INFORMATION: I have reviewed H&P completed within last 30 days, I have examined patient prior to procedure and No changes to prior documentation PREOP DIAGNOSIS: NSTEMI PRIMARY INDICATION FOR PROCEDURE: ASHD/CABG/NSTEMI PLANNED PROCEDURE: [facility] with coronary angio and possible PCI PATIENT REASSESSED PRIOR TO SEDATION, WITH NO CHANGE NOTED: Yes PHYSICAL EXAM: alert, oriented x 3, clear to auscultation bilaterally and regular rate & rhythm AIRWAY EVAL/ANESTHESIA PLAN: normal airway, see other exam findings, ASA III, Monitored Anesthesia, Local Anesthesia, Risks, benefits & alternatives of sedation and/or procedure discussed and Patient agrees to continue as planned
--- NOTE | 2022-07-29 16:30 | PC.NURSE ---
Patient to track repair laborer with track repair laborer RN.
--- NOTE | 2022-07-29 17:20 | P.PN_ITS ---
Subjective Subjective: Patient was seen and examined this morning denied any chest pain shortness of breath palpitation. No arrhythmia noted on telemetry. Medications: Medication Review Details: Generic Name Dose Route Start Last Admin Trade Name Evonne PRBassam Reason Stop Dose Admin Aspirin 81 mg 07/29/22 09:00 07/29/22 10:39 Aspirin 81 Mg Ec Tablet PO 81 mg DAILY MONIKA Administration Atorvastatin Calci um 80 mg 07/29/22 09:00 07/29/22 10:39 Atorvastatin 40 Mg Tablet PO 80 mg DAILY MONIKA Administration Clopidogrel Bisulf ate 75 mg 07/29/22 09:00 07/29/22 10:40 Clopidogrel 75 M g Tablet PO 75 mg DAILY MONIKA Administration Enoxaparin Sodium 90 mg 07/29/22 05:30 07/29/22 04:36 Enoxaparin 100 M g/Ml Syringe 1 mg/kg (90 mg) 90 mg SUBCUT Administration Q12H [facility] Sodium Chloride 1,000 mls @ 50 ml s/hr 07/29/22 15:45 07/29/22 15:49 Sodium Chloride 0.9% IV 07/30/22 11:44 50 mls/hr .Q20H ONE Administration Lisinopril 5 mg 07/29/22 09:00 07/29/22 10:39 Lisinopril 5 Mg Tablet PO 5 mg DAILY MONIKA Administration Metoprolol Tartrat e 50 mg 07/28/22 22:45 07/29/22 09:32 Metoprolol Tartr ate 50 Mg Tablet PO 50 mg BID@0900,2100 [facility] Administration Vitals/I&O/Wt Last Vital Signs Temp 98.3 F 07/29/22 15:50 Pulse 74 07/29/22 15:50 Resp 21 H 07/29/22 15:50 BP 135/91 07/29/22 15:50 Pulse Ox 96 07/29/22 15:50 O2 Del Method Room Air 07/29/22 15:50 07/29/22 07/29/22 07/29/22 06:59 14:59 22:59 Intake Total 0 / 0 0 / 0 Balance 0 / 0 0 / 0 Weight last 48 hrs Weight 94.064 kg Weight 92.986 kg Physical Exam Const: COMMON NORMALS: patient oriented x3 HENMT: COMMON NORMALS: normocephalic and atraumatic HEAD & SCALP: normocephalic and atraumatic Resp: COMMON NORMALS: clear to auscultation bilaterally AUSCULTATION: clear to auscultation bilaterally Cardio: COMMON NORMALS: regular rate, regular rhythm, S1 normal heart sound pr esent, S2 normal heart sound present, No gallops present (Cardio), No murmurs present (Cardio), No rub (Cardio) and Peripheral pulses 2+ throughout RATE: regular rate RHYTHM: regular rhythm HEART SOUNDS: S1 normal heart sound present and S2 normal heart sound present PERIPHERAL PULSES: Peripheral pulses 2+ throughout GI: COMMON NORMALS: Normal to inspection, nondistended, normoactive bowel sounds present, Soft to palpation, non-tender, No hepatosplenomegaly present and no masses AUSCULTATION: Yes normoactive bowel sounds PALPATION: Yes Soft to palpation and Yes No hepatosplenomegaly present RECTAL EXAM: Yes deferred Extremity: COMMON NORMALS: no clubbing, cyanosis or edema and no pedal edema Neuro: COMMON NORMALS: patient oriented x3 Data 07/29/22 05:03 07/29/22 05:03 A&P Assessment and plan (1) Wide-complex tachycardia: (2) Non-ST elevation MS (NSTEMI): (3) CAD (coronary artery disease): (4) Hypertension: (5) Hx of CABG: Plan 62 year old male with past medical history of hypertension , coronary artery disease s/p CABG, longtime active heavy chronic smoker, came in today with chief complaint of acute onset of shortness of breath dizziness palpitation, burning chest sensation, he does not himself to the local clinic, EMT found him wide- complex tachycardia, received 2 doses of adenosine 6 and 12, converted to sinus rhythm, was brought to the ER. Assessment: NSTEMI : Could be secondary to tachycardia driven, for now we will treat as NSTEMI type I, given his significant, past medical history of coronary artery disease, and active smoking, with hypertension EKG : Sinus rhythm, X-ray chest: No acute findings. Troponin trend: 163-312 , 6-hour troponin pending, proBNP 2425 Follow-up 2D echo Monitor serial EKG Continue telemetry monitoring Currently on ACS protocol (on aspirin Plavix, statin, therapeutic anticoagulation with Lovenox) Cardiology on board Patient is due for coronary angiogram today History of coronary artery disease s/p CABG: Continue aspirin Plavix statin History of hypertension: Continue lisinopril CODE STATUS; full code DVT prophylaxis not needed on therapeutic anticoagulation with Lovenox. Attestations Medical Necessity Statement*: Needs to be in hospital management NSTEMI Coding Level of Care Code 92448 Diagnoses Wide-complex tachycardia R00.0 Non-ST elevation MS (NSTEMI) I21.4 CAD (coronary artery disease) I25.10 Hypertension I10 Hx of CABG Z95.1
[2022-07-29 18:56] LABS: Partial Thromboplastin Time 52.4 SECONDS (23.9-36.7)
[2022-07-29] MEDS: temazepam 15 mg Capsule PO (20:45)
[2022-07-30] VITALS: BP 123/8; PULSE 71; RESP 21; TEMP 36.8; O2SAT 95
[2022-07-30 04:54] LABS: Basophils # 0.1 10^3/uL (0.0-0.1); Eosinophils # 0.2 10^3/uL (0.0-0.8); Eosinophils % 2.5 %; Hematocrit 39.4 % (42.0-52.0); Hemoglobin 13.4 g/dL (11.7-16.6); Lymphocytes # 1.8 10^3/uL (0.8-4.8); Lymphocytes % 20.6 %; Mean Corpuscular Hemoglobin 32.5 pg (28.0-34.0); Mean Corpuscular Volume 95.6 fl (80-94); Mean Platelet Volume 11.6 fL (7.4-10.4); Monocytes # 0.8 10^3/uL (0.2-0.9); Monocytes % 9.5 %; Neutrophils # 5.77 10^3/uL (1.8-7.7); Neutrophils % 66.1 %; Nucleated Red Blood Cells % 0 %; Platelet Count 173 10^3/cmm (130-400); Red Blood Count 4.12 10^6/uL (4.1-5.3); Red Cell Distribution Width 13.1 % (12.1-15.1); White Blood Count 8.7 10^3/uL (4.0-10.0)
[2022-07-30 05:00] VITALS: BP 126/81; PULSE 72; RESP 21; TEMP 36.6; O2SAT 96
[2022-07-30 05:09] LABS: Alanine Aminotransferase 20 U/L (0-41); Albumin Level 3.6 g/dL (3.5-5.2); Alkaline Phosphatase 64 U/L (40-130); Aspartate Amino Transferase 25 U/L (0-40); Blood Urea Nitrogen 19 mg/dL (8-23); Calcium 8.8 mg/dL (8.5-10.5); Carbon Dioxide 21 mmol/L (22-29); Chloride 108 mmol/L (98-107); Globulin 2.2 g/dL (1.3-4.6); Glomerular Filtration Rate 98.6 mL/min (90-130); Glucose 86 mg/dL (65-115); Osmolality Calculated 294 mOsm/kg (285-295); Sodium 141 mmol/L (136-145); Total Bilirubin 0.3 mg/dL (0.15-1.2); Total Protein 5.8 g/dL (6.6-8.7)
[2022-07-30 05:27] VITALS: PULSE 55
--- NOTE | 2022-07-30 07:40 | P.PN_ITS ---
Subjective Subjective: Patient doing well. no chest pain. Vitals/I&O/Wt Last Vital Signs Temp 97.9 F 07/30/22 05:00 Pulse 55 L 07/30/22 05:27 Resp 21 H 07/30/22 05:00 BP 126/81 07/30/22 05:00 Pulse Ox 96 07/30/22 05:00 O2 Del Method Room Air 07/30/22 05:00 07/29/22 07/30/22 07/30/22 22:59 06:59 14:59 Intake Total 100 / 100 880 / 980 Output Total 700 / 700 600 / 1300 Balance -600 / -600 280 / -320 Weight last 48 hrs Weight 209 lb 14.4 oz Weight 207 lb 6 oz Weight 205 lb Physical Exam Narrative: GENERAL: Patient is alert, awake and oriented x3. [] NECK: No jugular vein distension. [] HEENT: No cyanosis. No icterus. No pallor. [] HEART: Regular S1 and S2. Grade 2/6 systolic murmur LUNGS: Clear to auscultate bilaterally. [] ABDOMEN: Soft, nontender and nondistended. Positive bowel sounds. No guarding, rebound or tenderness. [] CENTRAL NERVOUS SYSTEM: Grossly nonfocal. [] EXTREMITIES: Lower extremities with 1+ edema bilaterally. Pulses palpable in the lower extremities, both dorsalis pedis and posterior tibial. 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 LUNA to LAD is patent. SVG to RCA is occluded. Medical therapy decided. Continue dual antiplatelet therapy with aspirin and Plavix for at least 1 year. Event monitor at time of discharge. Close cardiology follow-up. Thank you for involving us with care of this patient. Please call with questions. Attestations Medical Necessity Statement*: Care expected to cross 2 midnights. Coding Level of Care Code Acute Code for [facility] Fwd Diagnoses Wide-complex tachycardia R00.0 Non-ST elevation MN (NSTEMI) I21.4 Essential hypertension I10 H/O aortic valve replacement Z95.2 Arteriosclerotic heart disease (ASHD) I25.10
[2022-07-30 07:45] VITALS: BP 118/88; PULSE 85; RESP 21; O2SAT 96
[2022-07-30 08:21] VITALS: BP 118/88; PULSE 85; RESP 21; O2SAT 96
--- NOTE | 2022-07-30 19:31 | P.DS_ITS ---
Discharge Providers Date of Admission: 07/28/22 17:19 Date of Discharge: July 30, 2022 Attending Provider at Admission: Maxx Shetty MD Attending Provider at Discharge: Maxx Shetty MD Primary Care Provider: Seth Gatica MD Diagnoses at Discharge Discharge Diagnosis (1) Wide-complex tachycardia: Status: Acute (2) Non-ST elevation ID (NSTEMI): Status: Acute (3) Essential hypertension: Status: Acute (4) H/O aortic valve replacement: Status: Acute (5) Arteriosclerotic heart disease (ASHD): Status: Acute Reason for Visit Reason for Visit: SVT - CONVERTED NOW Hospital Course Hospital Course HPI: Antony Juares is a 62 year old male with past medical history of hypertension , coronary artery disease s/p CABG, longtime active heavy chronic smoker, came in today with chief complaint of acute onset of shortness of breath dizziness palpitation, burning chest sensation, he does not himself to the local clinic, EMT found him wide-complex tachycardia, received 2 doses of adenosine 6 and 12, converted to sinus rhythm, was brought to the ER.EKG : Sinus rhythm,X-ray chest: No acute findings. Pertinent labs: WBC 11.6, H&H 14/40 PLT : 186 , serum sodium 141 serum potassium 4.2, BUN 15, serum creatinine 1.2,TSH: 3.05 Troponin trend: [id number] ,proBNP 2425 Patient received 1 dose of therapeutic Lovenox in the ER, cardiology was consulted. Hospital course: Patient was admitted for the management of NSTEMI as well as wide-complex tachycardia, 2D echo done during the hospital stay showed: Diffuse hypokinesia of the left ventricular ejection fraction of ?45%.Mildly dilated LV cavity.Grade I/IV diastolic dysfunction (abnormal relaxation filling pattern), normal to mildly elevated filling pressures. Mild biatrial enlargement.?Thickened mitral valve. Mild-moderate mitral valve?regurgitation. The bioprosthetic valve in the aortic position appears to be ?well-seated.The peak velocity across the aortic valve is 1.65 ?m/s.?There is no pericardial effusion.Patient was kept on ACS protocol during the hospital stay, he also underwent coronary angiogram which showed: Short left main.? Moderate diffuse disease in the mid LAD with a patent LUNA to the distal LAD.? Total occlusion of the circumflex artery after the atrial branch.?Total occlusion of right coronary artery after the RV branch.Severe diffuse disease in the proximal RCA.?Total occlusion of the venous graft to the right coronary artery proximally.? Grade 2-3 left to right collaterals and [id number] collaterals filling of the PDA, PLV and obtuse marginal branches. Patient was continued on medical management.He was discharged home on event monitor given the presenting complaint of wide-complex tachycardia.He will continue to follow cardiology as outpatient. Physical Exam Const: COMMON NORMALS: patient oriented x3 HENMT: COMMON NORMALS: normocephalic and atraumatic HEAD & SCALP: normocephalic and atraumatic Resp: COMMON NORMALS: clear to auscultation bilaterally AUSCULTATION: clear to auscultation bilaterally Cardio: COMMON NORMALS: regular rate, regular rhythm, S1 normal heart sound present, S2 normal heart sound present, No gallops present (Cardio), No murmurs present (Cardio), No rub (Cardio) and Peripheral pulses 2+ throughout RATE: regular rate RHYTHM: regular rhythm HEART SOUNDS: S1 normal heart sound present and S2 normal heart sound present PERIPHERAL PULSES: Peripheral pulses 2+ throughout GI: COMMON NORMALS: Normal to inspection, nondistended, normoactive bowel sounds present, Soft to palpation, non-tender, No hepatosplenomegaly present and no masses AUSCULTATION: Yes normoactive bowel sounds PALPATION: Yes Soft to palpation and Yes No hepatosplenomegaly present RECTAL EXAM: Yes deferred Extremity: COMMON NORMALS: no clubbing, cyanosis or edema and no pedal edema Neuro: COMMON NORMALS: patient oriented x3 Discharge Data Studies Completed and Pending Completed Studies During Hospitalization Category Date Time 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 echo complete* [id number] Routine Ultrasound 07/28/22 17:36 Completed Radiology Impressions Chest X-Ray 07/28/22 13:02 IMPRESSION: Unremarkable frontal portable chest x-ray except for postsurgical changes as noted. Laboratory Results WBC 8.7 10^3/uL (4.0-10.0) 07/30/22 03:32 RBC 4.12 10^6/uL (4.1-5.3) 07/30/22 03:32 Hgb 13.4 g/dL (11.7-16.6) 07/30/22 03:32 Hct 39.4 % (42.0-52.0) L 07/30/22 03:32 MCV 95.6 fl (80-94) H 07/30/22 03:32 MCH 32.5 pg (28.0-34.0) 07/30/22 03:32 MCHC 34.0 g/dL (30.0-36.0) 07/30/22 03:32 RDW 13.1 % (12.1-15.1) 07/30/22 03:32 Plt Count 173 10^3/cmm (130-400) 07/30/22 03:32 MPV 11.6 fL (7.4-10.4) H 07/30/22 03:32 Neut % (Auto) 66.1 % 07/30/22 03:32 Lymph % (Auto) 20.6 % 07/30/22 03:32 Callahan % (Auto) 9.5 % 07/30/22 03:32 Eos % (Auto) 2.5 % 07/30/22 03:32 Baso % (Auto) 1.0 % 07/30/22 03:32 Neut # (Auto) 5.77 10^3/uL (1.8-7.7) 07/30/22 03:32 Lymph # (Auto) 1.8 10^3/uL (0.8-4.8) 07/30/22 03:32 Callahan # (Auto) 0.8 10^3/uL (0.2-0.9) 07/30/22 03:32 Eos # (Auto) 0.2 10^3/uL (0.0-0.8) 07/30/22 03:32 Baso # (Auto) 0.1 10^3/uL (0.0-0.1) 07/30/22 03:32 Nucleated RBC % (auto) 0 % 07/30/22 03:32 Nucleated RBCs # 0.0 /100WBC 07/30/22 03:32 APTT 52.4 SECONDS (23.9-36.7) H 07/29/22 17:58 Sodium 141 mmol/L (136-145) 07/30/22 03:32 Potassium 4.0 mmol/L (3.5-5.1) 07/30/22 03:32 Chloride 108 mmol/L (98-107) H 07/30/22 03:32 Carbon Dioxide 21 mmol/L (22-29) L 07/30/22 03:32 Anion Gap 16.0 (5-19) 07/30/22 03:32 BUN 19 mg/dL (8-23) 07/30/22 03:32 Creatinine 0.8 mg/dL (0.7-1.2) 07/30/22 03:32 GFR Calculation 98.6 mL/min (90-130) 07/30/22 03:32 Glucose 86 mg/dL (65-115) 07/30/22 03:32 Calculated Osmolality 294 mOsm/kg (285-295) 07/30/22 03:32 Calcium 8.8 mg/dL (8.5-10.5) 07/30/22 03:32 Magnesium 1.7 mg/dL (1.7-2.3) 07/29/22 05:03 Total Bilirubin 0.3 mg/dL (0.15-1.2) 07/30/22 03:32 AST 25 U/L (0-40) 07/30/22 03:32 ALT 20 U/L (0-41) 07/30/22 03:32 Alkaline Phosphatase 64 U/L (40-130) 07/30/22 03:32 Troponin T Baseline 163 ng/L (0-15) H* 07/28/22 12:49 Troponin T 120 Minute 312.6 ng/L (0-15) H 07/28/22 14:55 Delta Troponin T 149.6 ABS# (0-10) H* 07/28/22 14:55 Troponin T Hi Sens 6Hr 469.9 ng/L (0-15) H 07/28/22 19:40 Troponin T Hi Sens 6Hr Delta 306.9 ng/L (0-12) H* 07/28/22 19:40 NT-Pro-B Natriuret Pep 2425 pg/mL (0-125) H 07/28/22 12:49 Total Protein 5.8 g/dL (6.6-8.7) L 07/30/22 03:32 Albumin 3.6 g/dL (3.5-5.2) 07/30/22 03:32 Globulin 2.2 g/dL (1.3-4.6) 07/30/22 03:32 TSH 3.05 uIU/mL (0.27-4.20) 07/28/22 12:49 Vitals Last Vital Signs Temp 97.9 F 07/30/22 05:00 Pulse 85 07/30/22 08:21 Resp 21 H 07/30/22 08:21 BP 118/88 07/30/22 08:21 Pulse Ox 96 07/30/22 08:21 O2 Del Method Room Air 07/30/22 07:45 Discharge Plan Discharge Patient Disposition: Home Condition: Stable Prescriptions: New metoprolol succinate 100 mg tablet extended release 24 hr 50 mg PO BID Qty: 60 3RF aspirin 81 mg Tablet,Delayed Release (Dr/Ec) 81 mg PO DAILY 30 Days Qty: 30 2RF nitroglycerin 0.4 mg Tablet, Sublingual 0.4 mg sublingual Q5M PRN (Reason: Chest Pain) 30 Days Qty: 30 1RF Continued clopidogrel 75 mg tablet 75 mg PO DAILY lisinopril 5 mg tablet 5 mg PO DAILY rosuvastatin 40 mg tablet 40 mg PO DAILY Discharge Orders: Discharge Order (Routine); Ordered 07/30/22 Ordered By: Maxx Shetty Other Ambulatory Orders: MCT/Event Monitor 21 Days (Routine) Timeframe: 1 Week Facility: [facility] - Location: Radiology Ordered By: Maxx Shetty Referrals: Seth Gatica MD [Primary Care Provider] - (Your follow up appt with Dr. Gatica will be scheduled while you are at your appt with Nevaeh العلي. Please call [phone] for any questions or concerns. Thank you.) Nevaeh العلي FNP [Nurse Practitioner] - 08/05/22 1:15 pm Patient Instructions: Metoprolol (By mouth) (Lopressor, Toprol XL), Nitroglycerin (By mouth) (Nitro-Time), Aspirin (By mouth) (Sotero Extra Strength, Sotero Aspirin Children's,..., Heart Catheterization (DC), Opioid Safety, Post Angiogram Home Care Instructions Discharge Attestations Time Spent in Discharge Care*: less than 30 min Quality Metrics Clinical Quality Measures [ No reported AMI, CVA or VTE this stay] Coding Level of Care Code Acute Code for [facility] Fwd Diagnoses Wide-complex tachycardia R00.0 Non-ST elevation ID (NSTEMI) I21.4 Essential hypertension I10 H/O aortic valve replacement Z95.2 Arteriosclerotic heart disease (ASHD) I25.10
== END 2022-07-30 08:38 | disposition home or self-care (01) | DRG 281 ==
LOC: ER 17:16 → CSU 20:09
PROVIDERS: Admitting Provider Internal Medicine; Emergency Provider Emergency Medicine; PCP Internal Medicine Cardiovascular Disease; Visit Provider Internal Medicine
DX: I21.4 Non-ST elevation (NSTEMI) myocardial infarction (principal); I25.810 Atherosclerosis of coronary artery bypass graft(s) without angina pectoris; I47.1 Supraventricular tachycardia; I10 Essential (primary) hypertension; I25.10 Atherosclerotic heart disease of native coronary artery without angina pectoris; Z95.1 Presence of aortocoronary bypass graft; F17.200 Nicotine dependence, unspecified, uncomplicated; Z79.02 Long term (current) use of antithrombotics/antiplatelets; Z95.2 Presence of prosthetic heart valve; F10.90 Alcohol use, unspecified, uncomplicated; Z91.148 Patient's other noncompliance with medication regimen for other reason
CPT/HCPCS: 36415; 71045; 80053; 83735; 83880; 84443; 84484; 85025; 85730; 93005; 93306; 93455; 96372; 99152; 99153; 99285; C1769; C1887; C1894; J1644; J1650; J2250; J3010; J7030; Q0163; Q9967

== ENCOUNTER → 2022-08-05 13:55 | Outpatient (BNVA) | payer MEDICAID, SELFPAY | PROVIDERS: PCP Internal Medicine Cardiovascular Disease; Visit Provider Nurse Practitioner Family | DX: I25.10 Atherosclerotic heart disease of native coronary artery without angina pectoris (principal); R00.0 Tachycardia, unspecified | CPT/HCPCS: 36415; 80048 ==

== ENCOUNTER → 2023-06-13 13:12 | Outpatient (BNVA) | payer MEDICAID, SELFPAY | PROVIDERS: PCP Nurse Practitioner; Visit Provider Internal Medicine Cardiovascular Disease | DX: R06.02 Shortness of breath (principal); I10 Essential (primary) hypertension | CPT/HCPCS: 36415; 80048; 83880 ==

== ENCOUNTER → 2023-06-30 09:12 | Outpatient (BNVA) | payer MEDICAID, SELFPAY | PROVIDERS: PCP Nurse Practitioner; Visit Provider Internal Medicine Cardiovascular Disease | DX: I25.118 Atherosclerotic heart disease of native coronary artery with other forms of angina pectoris (principal); I10 Essential (primary) hypertension | CPT/HCPCS: 80048; 83880 ==